=== PATIENT | male | born 1955 | race Caucasian/White ===

== ENCOUNTER 2019-12-03 22:42 | Emergency (ER) | payer BC, OTHER ==
[~2019-12-03] VITALS: Ht 177.8 cm; Wt 82.1 kg
[2019-12-03 22:46] VITALS: BP 137/81
[2019-12-03] MEDS ORDERED: proparacaine 0.5% ophthalmic drops 15ml LEFTEYE ONE (23:10)
[2019-12-03] MEDS ORDERED: erythromycin ophthalmic ointment 1gm tube LEFTEYE ONE (23:30)
[2019-12-03] MEDS ORDERED: ERYT1OIN6 LEFTEYE (23:38)
== END 2019-12-03 23:44 | disposition home or self-care (01) ==
LOC: ER 22:42
DX: T15.02XA Foreign body in cornea, left eye, initial encounter (principal); E11.9 Type 2 diabetes mellitus without complications; Z88.0 Allergy status to penicillin; X58.XXXA Exposure to other specified factors, initial encounter; Y93.89 Activity, other specified; Y92.89 Other specified places as the place of occurrence of the external cause; Y99.9 Unspecified external cause status
CPT/HCPCS: 99284

== ENCOUNTER 2022-04-23 13:20 | Emergency (ER) | payer MEDICARE, BC ==
[~2022-04-23] VITALS: Ht 170.2 cm; Wt 78.9 kg
[2022-04-23] MEDS ORDERED: morphine 4 MG/ML inj SYRINge IV STA (13:40)
--- NOTE | 2022-04-23 13:47 | NUR ---
verbal order received to administer morphine 6mg iv, medication override,
[2022-04-23 14:15] LABS: BASOPHILS % (AUTO) 0.1 % (0-1); EOSINOPHILS # (AUTO) 0.1 X10'3 (0-0.9); EOSINOPHILS % (AUTO) 0.4 % (0-6); HEMOGLOBIN 14.8 g/dl (14.0-17.9); LYMPHOCYTES % (AUTO) 12.7 % (21-51); MEAN CORPUSCULAR HEMOGLOBIN 30.4 PG (27.0-31.0); MEAN CORPUSCULAR HGB CONC 33.7 g/dL (33.0-36.5); MEAN CORPUSCULAR VOLUME 90.3 FL (78-98); MEAN PLATELET VOLUME 7.4 FL (7.4-10.4); MONOCYTES # (AUTO) 1.1 X10'3 (0-0.9); NEUTROPHILS # (AUTO) 12.5 X10'3 (1.8-7.7); NEUTROPHILS % (AUTO) 79.8 % (42-75); PLATELET COUNT 339 X10'3 (140-440); RED BLOOD COUNT 4.88 X10'6 (4.70-6.10); RED CELL DISTRIBUTION WIDTH 13.6 % (11.5-14.5); WHITE BLOOD COUNT 15.6 X10'3 (4.5-11.0)
--- NOTE | 2022-04-23 14:24 | NUR ---
MD REQUESTED TO BEDSIDE FOR EVALUATION. PT SBP DECLINE FROM 158 TO 94. 1 LTR NS INITIATED. PT PALOR, NASEATED, AND CHILLING.
[2022-04-23 14:25] LABS: ANION GAP 14 (8-16); BLOOD UREA NITROGEN 29 MG/DL (7-18); BUN/CREATININE RATIO 18.4 (5.4-32.0); CHLORIDE 103 MMOL/L (99-107); CREATININE 1.58 MG/DL (0.60-1.10); GLUCOSE 117 MG/DL (70-104); POTASSIUM 3.6 MMOL/L (3.5-5.1); SODIUM 141 MMOL/L (135-145); TOTAL CARBON DIOXIDE 24.3 MMOL/L (24-32)
[2022-04-23 14:26] LABS: ALANINE AMINOTRANSFERASE 48 U/L (12-78); ALBUMIN 4.6 G/DL (3.4-5.0); ALBUMIN/GLOBULIN RATIO 1.4 (1.1-1.5); ALKALINE PHOSPHATASE 56 IU/L (46-116); ASPARTATE AMINO TRANSFERASE 39 U/L (10-37); BILIRUBIN,TOTAL 0.4 MG/DL (0.1-1.0); CALCIUM 10.3 MG/DL (8.5-10.1); eGFR 44 ML/MIN
[2022-04-23 14:31] LABS: ETHANOL < 0.010 GM/DL (0.0-0.010)
[2022-04-23] MEDS ORDERED: morphine 4 MG/ML inj SYRINge IV ONE (14:40)
[2022-04-23] MEDS ORDERED: ondansetron/PF 4mg/2ml inj IV ONE (14:40)
[2022-04-23 14:46] LABS: APTT 26 SECONDS (22-32)
[2022-04-23] MEDS ORDERED: propofol 10mg/ml 20ml vial IV ONE (15:15)
[2022-04-23] MEDS ORDERED: ringers solution, lactated 500ml IV solution IV ONE (15:15)
[2022-04-23] MEDS ORDERED: CEFD300C17 PO (16:33)
[2022-04-23] MEDS ORDERED: MORP15TA PO (16:37)
[2022-04-23 17:30] VITALS: BP 117/62
[2022-04-23] MEDS ORDERED: bacitracin 15gm ointment TP ONE (17:40)
--- NOTE | 2022-04-23 18:00 | NUR ---
Pt stable. VS WNL. Pt on room air. R cheekbone with small abrasion. R cheekbone and R citlali-orbital area with edema/ecchymosis. R hip pain. BUE/BLE CMS is intact. C-colar removed, as pt was cleared by provider at 1530. Dr. Herrera has assessed pt and reviewed imaging with pt and pt's . Pt instructed to follow up with opthamology, orthopedic provider, and ENT. also reviewed R shoulder mobility restrictions with pt.
--- NOTE | 2022-04-23 18:10 | NUR ---
TOTAL AMOUNT OF PROPOFOL GIVEN WAS [address] JUANJOSE MUIR[address] AT BEDSIDE TO VERIFY DOSE. CONTACTED PHARMACY AND WAS TOLD TO ENTER DOSE ADMINISTRATION IN NOTE.
--- NOTE | 2022-04-23 18:17 | NUR ---
SHIRLENE IRRIGATED PT WOUND SIGHT ON RIGHT SIDE OF FACE, SHIRLENE USED 600ML OF STERILE WATER WITH 30CC SYRINGE AND ZEROWET TO IRRIGATE THE SIGHT. SHIRLENE PLACED BACITRACIN OINTMENT ON WOUND SIGHT. SHIRLENE ASKED DOCTOR ZEE TO LOOK AT WOUND AFTER. SAID TO NOT WRAP AND LEAVE OPEN TO AIR, SHIRLENE DID NOT APPLY DRESSING TO WOUND SIGHT.
== END 2022-04-23 18:54 | disposition home or self-care (01) ==
LOC: ER 13:21
DX: S02.31XA Fracture of orbital floor, right side, initial encounter for closed fracture (principal); S06.9XAA Unspecified intracranial injury with loss of consciousness status unknown, initial encounter; W18.39XA Other fall on same level, initial encounter; Y93.89 Activity, other specified; Y92.89 Other specified places as the place of occurrence of the external cause; Y99.8 Other external cause status
CPT/HCPCS: 23650; 36415; 70450; 70486; 71045; 71250; 72125; 73020; 73030; 74176; 80053; 80320; 84484; 85025; 85610; 85730; 94799; 96361; 96374; 96375; 96376; 99285; J2270; J2405; J2704; J7120; A6449